=== PATIENT | male | born 1935 | race Two or more races ===

== ENCOUNTER 2022-06-23 14:31 | Outpatient (CLI) | payer OTHER ==
[~2022-06-23 14:31] MED LIST: GLIPIZIDE XL10 MG PO; SIMVASTATIN5 MG PO; ZESTRIL20 MG PO
== END 2022-06-23 14:34 | disposition home or self-care (01) ==
LOC: SONOGRAMA 14:31
PROVIDERS: ATTEND Pathology Anatomic Pathology & Clinical Pathology
DX: L04.2 Acute lymphadenitis of upper limb (principal)

== ENCOUNTER 2022-07-21 09:16 | Outpatient (CLI) | payer OTHER | END 2022-07-21 09:20 | disposition home or self-care (01) | LOC: SONOGRAMA 09:16 | PROVIDERS: ATTEND Pathology Anatomic Pathology | DX: C77.3 Secondary and unspecified malignant neoplasm of axilla and upper limb lymph nodes (principal) ==